=== PATIENT | female | born 1945 | race Caucasian/White ===

== ENCOUNTER 2019-03-11 13:56 | Observation (INO) | payer MEDICARE, OTHER ==
[2019-03-11] MEDS ORDERED: Sodium Chloride 0.9% 1,000 ML IV ONE (14:23)
[2019-03-11] MEDS ORDERED: Ketorolac 30 MG/ML SDV IVPUSH ONE (14:23)
--- NOTE | 2019-03-11 14:41 | EDM.PDOC ---
ED HPI GENERAL MEDICAL PROBLEM - General Chief Complaint: Genitourinary Problem Stated Complaint: UIT Time Seen by Provider: 03/11/19 14:08 Source of Information: Reports: Patient History Limitations: Reports: No Limitations - History of Present Illness INITIAL COMMENTS - FREE TEXT/NARRATIVE: HISTORY AND PHYSICAL: History of present illness: Patient is a 73-year-old female who presents to the emergency room with complaints of generalized body aches and chills. Patient reports last week she had called her primary care provider, Dr Pop, who gave her prescription over the phone for Cipro for a suspected UTI. She states she was unable to get into the clinic so they treated her empirically due to her dysuria symptoms. She had left for vacation (while taking the 5 day course of abx) and has recently returned home. She now has generalized body aches and chills. Patient denies any fever, chills, headache, change in vision, syncope or near syncope. Denies any chest pain, back pain, shortness of breath or cough. Denies any abdominal pain, flank pain, nausea, vomiting, diarrhea, constipation or dysuria. Has not noted any blood in urine or stool. Patient has been eating and drinking appropriately. Review of systems: As per history of present illness and below otherwise all systems reviewed and negative. Past medical history: As per history of present illness and as reviewed below otherwise noncontributory. Surgical history: As per history of present illness and as reviewed below otherwise noncontributory. Social history: See social history for further information Family history: As per history of present illness and as reviewed below otherwise noncontributory. Physical exam: General: Well-developed and well-nourished 73-year-old female. Alert and oriented. Nontoxic appearing and in no acute distress. HEENT: Atraumatic, normocephalic, pupils equal and reactive bilaterally, legally blind, negative for conjunctival pallor or scleral icterus, mucous membranes moist, TMs normal bilaterally, throat clear, neck supple, nontender, trachea midline. No drooling or trismus noted. No meningeal signs. No hot potato voice noted. Lungs: Clear to auscultation, breath sounds equal bilaterally, chest nontender. Heart: S1S2, regular rate and rhythm without overt murmur Abdomen: Soft, nondistended, nontender. Negative for masses or hepatosplenomegaly. Negative for costovertebral tenderness. Pelvis: Stable nontender. Genitourinary: Deferred. Rectal: Deferred. Skin: Intact, warm, dry. No lesions or rashes noted. Extremities: Atraumatic, moves all extremities per self without difficulty or deficits, negative for cords or calf pain. Neurovascular unremarkable. Neuro: Awake, alert, oriented. Cranial nerves II through XII unremarkable. Cerebellum unremarkable. Motor and sensory unremarkable throughout. Exam nonfocal. Notes: Patient reports she does not feel any improvement after the IV fluids and Toradol. Rocephin is currently running for treatment of the UTI. We'll call Dr. Ugalde in consult for possible admission for observation. Dr Ugalde is agreeable to observation admission. Patients vital signs remain stable. Diagnostics: CBC, CMP, EKG, UA, Lactic Therapeutics: IV fluids, Toradol, Rocephin Impression: UTI Plan: Observation admission to med/surg Definitive disposition and diagnosis as appropriate pending reevaluation and review of above. Generalized Pain Score (Numeric/FACES): 2 - Related Data Allergies Allergy/AdvReac Type Severity Reaction Status Date / Time No Known Allergies Allergy Verified 03/11/19 14:14 Home Meds: Home Meds . [No Known Home Meds] 03/11/19 [History] Past Medical History - Infectious Disease History Infectious Disease History: Reports: Chicken Pox, Measles - Past Surgical History GI Surgical History: Reports: Cholecystectomy Female Surgical History: Reports: Hysterectomy Social & Family History - Family History Family Medical History: Noncontributory - Tobacco Use Smoking Status *Q: Never Smoker - Recreational Drug Use Recreational Drug Use: No ED ROS GENERAL - Review of Systems Review Of Systems: ROS reveals no pertinent complaints other than HPI. ED EXAM, GI/ABD - Physical Exam Exam: See Below (See dictation) Course - Vital Signs Last Recorded V/S: Last Vital Signs Temp 98.7 F 03/11/19 14:11 Pulse 97 03/11/19 14:11 Resp 18 03/11/19 14:11 BP 177/94 H 03/11/19 14:11 Pulse Ox 96 03/11/19 14:11 - Orders/Labs/Meds Orders: Active Orders 24 hr Category Date Time Status Admission Status [Patient Status] [ADT] Stat ADT 03/11/19 16:26 Active EKG Documentation Completion [RC] STAT Care 03/11/19 14:23 Active CULTURE URINE [RM] Stat Lab 03/11/19 15:30 Received Labs: Laboratory Tests 03/11/19 03/11/19 03/11/19 Range/Units 14:57 15:30 15:42 WBC 11.30 H (4.0-11.0) K/uL RBC 4.57 (4.30-5.90) M/uL Hgb 14.0 (12.0-16.0) g/dL Hct 42.3 (36.0-46.0) % MCV 92.6 (80.0-98.0) fL MCH 30.6 (27.0-32.0) pg MCHC 33.1 (31.0-37.0) g/dL RDW Std Deviation 42.8 (28.0-62.0) fl RDW Coeff of Dianelys 13 (11.0-15.0) % Plt Count 214 (150-400) K/uL MPV 9.90 (7.40-12.00) fL Neut % (Auto) 73.5 (48.0-80.0) % Lymph % (Auto) 16.6 (16.0-40.0) % [place] % (Auto) 9.4 (0.0-15.0) % Eos % (Auto) 0.4 (0.0-7.0) % Baso % (Auto) 0.1 (0.0-1.5) % Neut # (Auto) 8.3 H (1.4-5.7) K/uL Lymph # (Auto) 1.9 (0.6-2.4) K/uL [place] # (Auto) 1.1 H (0.0-0.8) K/uL Eos # (Auto) 0.1 (0.0-0.7) K/uL Baso # (Auto) 0.0 (0.0-0.1) K/uL Nucleated RBC % 0.0 /100WBC Nucleated RBCs # 0 K/uL Lactate (0.20-2.00) mmol/L Sodium 141 (136-145) mmol/L Potassium 3.9 (3.5-5.1) mmol/L Chloride 104 (98-107) mmol/L Carbon Dioxide 26.7 (21.0-32.0) mmol/L BUN 12 (7.0-18.0) mg/dL Creatinine 0.9 (0.6-1.0) mg/dL Est Cr Clr Drug Dosing 52.12 mL/min Estimated GFR (MDRD) > 60.0 ml/min Glucose 99 (74-106) mg/dL Calcium 8.6 (8.5-10.1) mg/dL Total Bilirubin 0.5 (0.2-1.0) mg/dL AST 24 (15-37) IU/L ALT 38 (14-63) IU/L Alkaline Phosphatase 130 H (46-116) U/L Total Protein 7.1 (6.4-8.2) g/dL Albumin 3.3 L (3.4-5.0) g/dL Globulin 3.8 (2.6-4.0) g/dL Albumin/Globulin Ratio 0.9 (0.9-1.6) Urine Color YELLOW Urine Appearance CLEAR Urine pH 6.0 (5.0-8.0) Ur Specific [place] 1.010 (1.001-1.035) Urine Protein 30 H (NEGATIVE) mg/dL Urine Glucose (UA) NEGATIVE (NEGATIVE) mg/dL Urine Ketones 15 H (NEGATIVE) mg/dL Urine Occult Blood SMALL H (NEGATIVE) Urine Nitrite POSITIVE H (NEGATIVE) Urine Bilirubin NEGATIVE (NEGATIVE) Urine Urobilinogen 0.2 (<2.0) EU/dL Ur Leukocyte Esterase LARGE H (NEGATIVE) Urine RBC 2-4 (0-2/HPF) Urine WBC TO NUMEROUS TO COUNT H (0-5/HPF) Ur Epithelial Cells FEW (NONE-FEW) Urine Bacteria 1+ H (NEGATIVE) 03/11/19 Range/Units 15:42 WBC (4.0-11.0) K/uL RBC (4.30-5.90) M/uL Hgb (12.0-16.0) g/dL Hct (36.0-46.0) % MCV (80.0-98.0) fL MCH (27.0-32.0) pg MCHC (31.0-37.0) g/dL RDW Std Deviation (28.0-62.0) fl RDW Coeff of Dianelys (11.0-15.0) % Plt Count (150-400) K/uL MPV (7.40-12.00) fL Neut % (Auto) (48.0-80.0) % Lymph % (Auto) (16.0-40.0) % [place] % (Auto) (0.0-15.0) % Eos % (Auto) (0.0-7.0) % Baso % (Auto) (0.0-1.5) % Neut # (Auto) (1.4-5.7) K/uL Lymph # (Auto) (0.6-2.4) K/uL [place] # (Auto) (0.0-0.8) K/uL Eos # (Auto) (0.0-0.7) K/uL Baso # (Auto) (0.0-0.1) K/uL Nucleated RBC % /100WBC Nucleated RBCs # K/uL Lactate 1.2 (0.20-2.00) mmol/L Sodium (136-145) mmol/L Potassium (3.5-5.1) mmol/L Chloride (98-107) mmol/L Carbon Dioxide (21.0-32.0) mmol/L BUN (7.0-18.0) mg/dL Creatinine (0.6-1.0) mg/dL Est Cr Clr Drug Dosing mL/min Estimated GFR (MDRD) ml/min Glucose (74-106) mg/dL Calcium (8.5-10.1) mg/dL Total Bilirubin (0.2-1.0) mg/dL AST (15-37) IU/L ALT (14-63) IU/L Alkaline Phosphatase (46-116) U/L Total Protein (6.4-8.2) g/dL Albumin (3.4-5.0) g/dL Globulin (2.6-4.0) g/dL Albumin/Globulin Ratio (0.9-1.6) Urine Color Urine Appearance Urine pH (5.0-8.0) Ur Specific [place] (1.001-1.035) Urine Protein (NEGATIVE) mg/dL Urine Glucose (UA) (NEGATIVE) mg/dL Urine Ketones (NEGATIVE) mg/dL Urine Occult Blood (NEGATIVE) Urine Nitrite (NEGATIVE) Urine Bilirubin (NEGATIVE) Urine Urobilinogen (<2.0) EU/dL Ur Leukocyte Esterase (NEGATIVE) Urine RBC (0-2/HPF) Urine WBC (0-5/HPF) Ur Epithelial Cells (NONE-FEW) Urine Bacteria (NEGATIVE) Meds: Medications Discontinued Medications Generic Name Dose Route Start Last Admin Trade Name Nicolasa PRN Reason Stop Dose Admin Sodium Chloride 1,000 mls @ 999 mls/hr 03/11/19 14:23 03/11/19 14:59 Normal Saline IV 03/11/19 15:23 999 mls/hr STAT ONE Administration Ceftriaxone Sodium/Dextrose 1 50 mls @ 100 mls/hr 03/11/19 15:52 03/11/19 16: 17 gm/ Premix IV 03/11/19 16:21 100 mls/hr ONETIME ONE Administration Ketorolac Tromethamine 30 mg 03/11/19 14:23 03/11/19 15:02 Toradol IVPUSH 03/11/19 14:24 30 mg ONETIME ONE Administration Departure - Departure Time of Disposition: 17:00 Disposition: Refer to Observation Clinical Impression: UTI, Urinary tract infectious disease - Discharge Information Referrals: Elliot Pop MD [Primary Care Provider] - Forms: ED Department Discharge - My Orders Last 24 Hours: My Active Orders 03/11/19 14:23 EKG Documentation Completion [RC] STAT 03/11/19 15:30 CULTURE URINE [RM] Stat 03/11/19 16:26 Admission Status [Patient Status] [ADT] Stat - Assessment/Plan Last 24 Hours: My Active Orders 03/11/19 14:23 EKG Documentation Completion [RC] STAT 03/11/19 15:30 CULTURE URINE [RM] Stat 03/11/19 16:26 Admission Status [Patient Status] [ADT] Stat
[2019-03-11] MEDS ORDERED: cefTRIAXone 1 GM in Premix Bag 1 BAG IV ONE (15:52)
[2019-03-11 16:10] LABS: CHLORIDE,CL 104 mmol/L (98-107); SODIUM,NA 141 mmol/L (136-145)
[2019-03-11] MEDS: Sodium Chloride 0.9% 1,000 ML IV SCH (19:08)
[2019-03-11] MEDS: Acetaminophen 325 MG Tab PO PRN (20:41)
[2019-03-11] MEDS ORDERED: Ondansetron 4 MG/2 ML SDV IVPUSH PRN (21:55)
--- NOTE | 2019-03-11 21:59 | PCM.HP ---
H&P History of Present Illness - General Date of Service: 03/11/19 Admit Problem/Dx: Admission Diagnosis/Problem Admission Diagnosis/Problem UTI, Urinary tract infectious disease - History of Present Illness Initial Comments - Free Text/Narative: 73 yo female who presents with five day history of malaise, fevers, chills, and myalgias. Last tuesday she was given ciprofloxacin for UTI by Dr. Pop. She reports that she has not been getting better. She was seen in the ED and noted to have pyuria on UA. Generalized Pain Score (Numeric/FACES): 2 - Related Data Allergies/Adverse Reactions: Allergies Allergy/AdvReac Type Severity Reaction Status Date / Time No Known Allergies Allergy Verified 03/11/19 14:14 Home Medications: Home Meds . [No Known Home Meds] 03/11/19 [History] Past Medical History - Infectious Disease History Infectious Disease History: Reports: Chicken Pox, Measles - Past Surgical History GI Surgical History: Reports: Cholecystectomy Female Surgical History: Reports: Hysterectomy Social & Family History - Family History Family Medical History: Noncontributory - Tobacco Use Smoking Status *Q: Never Smoker - Caffeine Use Caffeine Use: Reports: Coffee - Recreational Drug Use Recreational Drug Use: No H&P Review of Systems - Review of Systems: Review Of Systems: ROS reveals no pertinent complaints other than HPI. Exam - Exam Exam: See Below - Vital Signs Vital Signs: Last Vital Signs Temp 38.8 C H 03/11/19 20:00 Pulse 105 H 03/11/19 20:00 Resp 18 03/11/19 20:00 BP 126/65 03/11/19 20:00 Pulse Ox 94 L 03/11/19 20:00 Weight: 66.905 kg - Exam General: Alert, Oriented HEENT: Mucosa Moist & [place]ck: Supple Lungs: Clear to Auscultation, Normal Respiratory Effort Cardiovascular: Regular Rate, Regular Rhythm GI/Abdominal Exam: Normal Bowel Sounds, Soft, Non-Tender Skin: Warm, Dry, Intact Neurological: Cranial Nerves Intact - Patient Data Lab Results Last 24 hrs: Laboratory Results - last 24 hr 03/11/19 03/11/19 03/11/19 Range/Units 14:57 15:30 15:42 WBC 11.30 H (4.0-11.0) K/uL RBC 4.57 (4.30-5.90) M/uL Hgb 14.0 (12.0-16.0) g/dL Hct 42.3 (36.0-46.0) % MCV 92.6 (80.0-98.0) fL MCH 30.6 (27.0-32.0) pg MCHC 33.1 (31.0-37.0) g/dL RDW Std Deviation 42.8 (28.0-62.0) fl RDW Coeff of Dianelys 13 (11.0-15.0) % Plt Count 214 (150-400) K/uL MPV 9.90 (7.40-12.00) fL Neut % (Auto) 73.5 (48.0-80.0) % Lymph % (Auto) 16.6 (16.0-40.0) % [place] % (Auto) 9.4 (0.0-15.0) % Eos % (Auto) 0.4 (0.0-7.0) % Baso % (Auto) 0.1 (0.0-1.5) % Neut # (Auto) 8.3 H (1.4-5.7) K/uL Lymph # (Auto) 1.9 (0.6-2.4) K/uL [place] # (Auto) 1.1 H (0.0-0.8) K/uL Eos # (Auto) 0.1 (0.0-0.7) K/uL Baso # (Auto) 0.0 (0.0-0.1) K/uL Nucleated RBC % 0.0 /100WBC Nucleated RBCs # 0 K/uL Lactate (0.20-2.00) mmol/L Sodium 141 (136-145) mmol/L Potassium 3.9 (3.5-5.1) mmol/L Chloride 104 (98-107) mmol/L Carbon Dioxide 26.7 (21.0-32.0) mmol/L BUN 12 (7.0-18.0) mg/dL Creatinine 0.9 (0.6-1.0) mg/dL Est Cr Clr Drug Dosing 52.12 mL/min Estimated GFR (MDRD) > 60.0 ml/min Glucose 99 (74-106) mg/dL Calcium 8.6 (8.5-10.1) mg/dL Total Bilirubin 0.5 (0.2-1.0) mg/dL AST 24 (15-37) IU/L ALT 38 (14-63) IU/L Alkaline Phosphatase 130 H (46-116) U/L Total Protein 7.1 (6.4-8.2) g/dL Albumin 3.3 L (3.4-5.0) g/dL Globulin 3.8 (2.6-4.0) g/dL Albumin/Globulin Ratio 0.9 (0.9-1.6) Urine Color YELLOW Urine Appearance CLEAR Urine pH 6.0 (5.0-8.0) Ur Specific [place] 1.010 (1.001-1.035) Urine Protein 30 H (NEGATIVE) mg/dL Urine Glucose (UA) NEGATIVE (NEGATIVE) mg/dL Urine Ketones 15 H (NEGATIVE) mg/dL Urine Occult Blood SMALL H (NEGATIVE) Urine Nitrite POSITIVE H (NEGATIVE) Urine Bilirubin NEGATIVE (NEGATIVE) Urine Urobilinogen 0.2 (<2.0) EU/dL Ur Leukocyte Esterase LARGE H (NEGATIVE) Urine RBC 2-4 (0-2/HPF) Urine WBC TO NUMEROUS TO COUNT H (0-5/HPF) Ur Epithelial Cells FEW (NONE-FEW) Urine Bacteria 1+ H (NEGATIVE) 03/11/19 Range/Units 15:42 WBC (4.0-11.0) K/uL RBC (4.30-5.90) M/uL Hgb (12.0-16.0) g/dL Hct (36.0-46.0) % MCV (80.0-98.0) fL MCH (27.0-32.0) pg MCHC (31.0-37.0) g/dL RDW Std Deviation (28.0-62.0) fl RDW Coeff of Dianelys (11.0-15.0) % Plt Count (150-400) K/uL MPV (7.40-12.00) fL Neut % (Auto) (48.0-80.0) % Lymph % (Auto) (16.0-40.0) % [place] % (Auto) (0.0-15.0) % Eos % (Auto) (0.0-7.0) % Baso % (Auto) (0.0-1.5) % Neut # (Auto) (1.4-5.7) K/uL Lymph # (Auto) (0.6-2.4) K/uL [place] # (Auto) (0.0-0.8) K/uL Eos # (Auto) (0.0-0.7) K/uL Baso # (Auto) (0.0-0.1) K/uL Nucleated RBC % /100WBC Nucleated RBCs # K/uL Lactate 1.2 (0.20-2.00) mmol/L Sodium (136-145) mmol/L Potassium (3.5-5.1) mmol/L Chloride (98-107) mmol/L Carbon Dioxide (21.0-32.0) mmol/L BUN (7.0-18.0) mg/dL Creatinine (0.6-1.0) mg/dL Est Cr Clr Drug Dosing mL/min Estimated GFR (MDRD) ml/min Glucose (74-106) mg/dL Calcium (8.5-10.1) mg/dL Total Bilirubin (0.2-1.0) mg/dL AST (15-37) IU/L ALT (14-63) IU/L Alkaline Phosphatase (46-116) U/L Total Protein (6.4-8.2) g/dL Albumin (3.4-5.0) g/dL Globulin (2.6-4.0) g/dL Albumin/Globulin Ratio (0.9-1.6) Urine Color Urine Appearance Urine pH (5.0-8.0) Ur Specific [place] (1.001-1.035) Urine Protein (NEGATIVE) mg/dL Urine Glucose (UA) (NEGATIVE) mg/dL Urine Ketones (NEGATIVE) mg/dL Urine Occult Blood (NEGATIVE) Urine Nitrite (NEGATIVE) Urine Bilirubin (NEGATIVE) Urine Urobilinogen (<2.0) EU/dL Ur Leukocyte Esterase (NEGATIVE) Urine RBC (0-2/HPF) Urine WBC (0-5/HPF) Ur Epithelial Cells (NONE-FEW) Urine Bacteria (NEGATIVE) Result Diagrams: 03/12/19 05:43 03/12/19 05:43 Ritesh Results Last 24 hrs: Microbiology 03/11/19 15:24 Influenza Type A Antigen Screen - Final Nasopharyngeal Swab NEGATIVE INFLUENZA A VIRUS AG Influenza Type B Antigen Screen - Final NEGATIVE INFLUENZA B VIRUS AG Problem List Initiated/Reviewed/Updated: Yes Orders Last 24hrs: Active Orders 24 hr Category Date Time Status Admission Status [Patient Status] [ADT] Stat ADT 03/11/19 16:26 Active Antiembolic Devices [RC] PER UNIT ROUTINE Care 03/11/19 21:56 Ordered EKG Documentation Completion [RC] STAT Care 03/11/19 14:23 Active Notify Provider [RC] Q12H Care 03/11/19 17:47 Active Oxygen Therapy [RC] PRN Care 03/11/19 21:55 Ordered Up ad Nuris [RC] ASDIRECTED Care 03/11/19 21:55 Ordered VTE/DVT Education [RC] PER UNIT ROUTINE Care 03/11/19 21:55 Ordered Vital Signs [RC] Q4H Care 03/11/19 21:55 Ordered Regular Diet [DIET] Diet 03/11/19 Dinner Active Abdomen Pelvis wo Cont [CT] Routine Exams 03/11/19 21:38 Ordered BASIC METABOLIC PANEL,BMP [CHEM] Routine Lab 03/12/19 05:11 Ordered CBC WITH AUTO DIFF [HEME] Routine Lab 03/12/19 05:11 Ordered CULTURE URINE [RM] Stat Lab 03/11/19 15:30 Received Acetaminophen [Tylenol] Med 03/11/19 20:19 Active 650 mg PO Q6H PRN Ondansetron [Zofran] Med 03/11/19 21:55 Ordered 4 mg IVPUSH Q4H PRN Sodium Chloride 0.9% [Normal Saline] 1,000 ml Med 03/11/19 19:00 Active IV ASDIRECTED cefTRIAXone [Rocephin in Dextrose,Iso-Osm 1 GM/50 ML] 1 Med 03/12/19 16:00 Active gm Premix Bag 1 bag IV Q24H Sequential Compression Device [OM.PC] Per Unit Routine Oth 03/11/19 21:56 Ordered Resuscitation Status Routine Resus Stat 03/11/19 21:55 Ordered Medication Orders Acetaminophen (Tylenol) 650 mg PO Q6H PRN PRN Reason: Pain Last Admin: 03/11/19 20:41 Dose: 650 mg Sodium Chloride (Normal Saline) 1,000 mls @ 125 mls/hr IV ASDIRECTED BILLY Last Admin: 03/11/19 19:08 Dose: 125 mls/hr Ceftriaxone Sodium/Dextrose 1 (gm/ Premix) 50 mls @ 100 mls/hr IV Q24H [facility] Assessment/Plan Comment:: 73 yo female admitted for UTI possible pyelonephritis. We will check CT of the abdomen and pelvis. Will treat with IV Rocephin. Urine culture is pending.
--- NOTE | 2019-03-11 22:59 | CT ---
INDICATION: Abdominal pain. TECHNIQUE: Noncontrast axial images. Sagittal and coronal reconstructions. COMPARISON: None. FINDINGS: Lower chest: Heart size is within normal limits. No pericardial effusion. Mild bibasilar atelectasis. No pleural fluid. Abdomen and pelvis: The unenhanced liver appears unremarkable. Cholecystectomy. Spleen is normal in size. Unenhanced pancreas is unremarkable. No adrenal gland abnormality. No urinary tract stones are identified. No hydronephrosis. There is mild right-sided perinephric fat stranding. Left renal cyst. Atherosclerotic changes. Normal caliber abdominal aorta. No significantly dilated bowel. Normal appendix. Colonic diverticulosis without evidence of acute diverticulitis. No free air. Trace free fluid is seen in the pelvis. Urinary bladder appears unremarkable. Hysterectomy. Bones: No acute abnormality. Degenerative changes are present in the spine and hips. IMPRESSION: 1. No urinary tract stones or hydroureteronephrosis. 2. There is perinephric fat stranding on the right. This could be secondary to pyelonephritis, although this is suboptimally assessed on this unenhanced study. Recommend correlation with urinalysis. 3. Nonacute findings as described above. Dictated by Freddy Gan MD @ 03/11/2019 10:57:38 PM Please note that all CT scans at this facility use dose modulation, iterative reconstruction, and/or weight-based dosing when appropriate to reduce radiation dose to as low as reasonably achievable. Dictated by: Freddy Gan MD @ 03/11/2019 22:57:45 (Electronically Signed)
[2019-03-12] MEDS: Sodium Chloride 0.9% 1,000 ML IV SCH ×3 (03:15→19:19)
[2019-03-12] MEDS: Acetaminophen 325 MG Tab PO PRN ×4 (04:06→22:41)
[2019-03-12 06:26] LABS: CHLORIDE,CL 107 mmol/L (98-107); SODIUM,NA 140 mmol/L (136-145)
--- NOTE | 2019-03-12 11:47 | PCM.PN ---
- General Info Date of Service: 03/12/19 - Review of Systems Systems Review Comment:: feeling better, myalgias and strength improved - Patient Data Vitals - Most Recent: Last Vital Signs Temp 36.4 C 03/12/19 08:00 Pulse 76 03/12/19 08:00 Resp 16 03/12/19 08:00 BP 110/69 03/12/19 08:00 Pulse Ox 94 L 03/12/19 08:00 Weight - Most Recent: 66.905 kg I&O - Last 24 Hours: Intake & Output 03/11/19 03/12/19 03/12/19 22:59 06:59 14:59 Intake Total 2002 240 Output Total 650 Balance 1353 240 Lab Results Last 24 Hours: Laboratory Results - last 24 hr 03/11/19 03/11/19 03/11/19 Range/Units 14:57 15:30 15:42 WBC 11.30 H (4.0-11.0) K/uL RBC 4.57 (4.30-5.90) M/uL Hgb 14.0 (12.0-16.0) g/dL Hct 42.3 (36.0-46.0) % MCV 92.6 (80.0-98.0) fL MCH 30.6 (27.0-32.0) pg MCHC 33.1 (31.0-37.0) g/dL RDW Std Deviation 42.8 (28.0-62.0) fl RDW Coeff of Dianelys 13 (11.0-15.0) % Plt Count 214 (150-400) K/uL MPV 9.90 (7.40-12.00) fL Neut % (Auto) 73.5 (48.0-80.0) % Lymph % (Auto) 16.6 (16.0-40.0) % [place] % (Auto) 9.4 (0.0-15.0) % Eos % (Auto) 0.4 (0.0-7.0) % Baso % (Auto) 0.1 (0.0-1.5) % Neut # (Auto) 8.3 H (1.4-5.7) K/uL Lymph # (Auto) 1.9 (0.6-2.4) K/uL [place] # (Auto) 1.1 H (0.0-0.8) K/uL Eos # (Auto) 0.1 (0.0-0.7) K/uL Baso # (Auto) 0.0 (0.0-0.1) K/uL Nucleated RBC % 0.0 /100WBC Nucleated RBCs # 0 K/uL Lactate (0.20-2.00) mmol/L Sodium 141 (136-145) mmol/L Potassium 3.9 (3.5-5.1) mmol/L Chloride 104 (98-107) mmol/L Carbon Dioxide 26.7 (21.0-32.0) mmol/L BUN 12 (7.0-18.0) mg/dL Creatinine 0.9 (0.6-1.0) mg/dL Est Cr Clr Drug Dosing 52.12 mL/min Estimated GFR (MDRD) > 60.0 ml/min Glucose 99 (74-106) mg/dL Calcium 8.6 (8.5-10.1) mg/dL Total Bilirubin 0.5 (0.2-1.0) mg/dL AST 24 (15-37) IU/L ALT 38 (14-63) IU/L Alkaline Phosphatase 130 H (46-116) U/L Total Protein 7.1 (6.4-8.2) g/dL Albumin 3.3 L (3.4-5.0) g/dL Globulin 3.8 (2.6-4.0) g/dL Albumin/Globulin Ratio 0.9 (0.9-1.6) Urine Color YELLOW Urine Appearance CLEAR Urine pH 6.0 (5.0-8.0) Ur Specific [place] 1.010 (1.001-1.035) Urine Protein 30 H (NEGATIVE) mg/dL Urine Glucose (UA) NEGATIVE (NEGATIVE) mg/dL Urine Ketones 15 H (NEGATIVE) mg/dL Urine Occult Blood SMALL H (NEGATIVE) Urine Nitrite POSITIVE H (NEGATIVE) Urine Bilirubin NEGATIVE (NEGATIVE) Urine Urobilinogen 0.2 (<2.0) EU/dL Ur Leukocyte Esterase LARGE H (NEGATIVE) Urine RBC 2-4 (0-2/HPF) Urine WBC TO NUMEROUS TO COUNT H (0-5/HPF) Ur Epithelial Cells FEW (NONE-FEW) Urine Bacteria 1+ H (NEGATIVE) 03/11/19 03/12/19 03/12/19 Range/Units 15:42 05:43 05:43 WBC 9.73 (4.0-11.0) K/uL RBC 3.85 L (4.30-5.90) M/uL Hgb 11.6 L (12.0-16.0) g/dL Hct 35.5 L (36.0-46.0) % MCV 92.2 (80.0-98.0) fL MCH 30.1 (27.0-32.0) pg MCHC 32.7 (31.0-37.0) g/dL RDW Std Deviation 43.1 (28.0-62.0) fl RDW Coeff of Dianelys 13 (11.0-15.0) % Plt Count 199 (150-400) K/uL MPV 9.30 (7.40-12.00) fL Neut % (Auto) 76.5 (48.0-80.0) % Lymph % (Auto) 12.9 L (16.0-40.0) % [place] % (Auto) 9.7 (0.0-15.0) % Eos % (Auto) 0.7 (0.0-7.0) % Baso % (Auto) 0.2 (0.0-1.5) % Neut # (Auto) 7.4 H (1.4-5.7) K/uL Lymph # (Auto) 1.3 (0.6-2.4) K/uL [place] # (Auto) 0.9 H (0.0-0.8) K/uL Eos # (Auto) 0.1 (0.0-0.7) K/uL Baso # (Auto) 0.0 (0.0-0.1) K/uL Nucleated RBC % 0.0 /100WBC Nucleated RBCs # 0 K/uL Lactate 1.2 (0.20-2.00) mmol/L Sodium 140 (136-145) mmol/L Potassium 3.5 (3.5-5.1) mmol/L Chloride 107 (98-107) mmol/L Carbon Dioxide 23.4 (21.0-32.0) mmol/L BUN 9 (7.0-18.0) mg/dL Creatinine 0.8 (0.6-1.0) mg/dL Est Cr Clr Drug Dosing 58.95 mL/min Estimated GFR (MDRD) > 60.0 ml/min Glucose 115 H (74-106) mg/dL Calcium 7.5 L (8.5-10.1) mg/dL Total Bilirubin (0.2-1.0) mg/dL AST (15-37) IU/L ALT (14-63) IU/L Alkaline Phosphatase (46-116) U/L Total Protein (6.4-8.2) g/dL Albumin (3.4-5.0) g/dL Globulin (2.6-4.0) g/dL Albumin/Globulin Ratio (0.9-1.6) Urine Color Urine Appearance Urine pH (5.0-8.0) Ur Specific [place] (1.001-1.035) Urine Protein (NEGATIVE) mg/dL Urine Glucose (UA) (NEGATIVE) mg/dL Urine Ketones (NEGATIVE) mg/dL Urine Occult Blood (NEGATIVE) Urine Nitrite (NEGATIVE) Urine Bilirubin (NEGATIVE) Urine Urobilinogen (<2.0) EU/dL Ur Leukocyte Esterase (NEGATIVE) Urine RBC (0-2/HPF) Urine WBC (0-5/HPF) Ur Epithelial Cells (NONE-FEW) Urine Bacteria (NEGATIVE) Ritesh Results Last 24 Hours: Microbiology 03/11/19 15:24 Influenza Type A Antigen Screen - Final Nasopharyngeal Swab NEGATIVE INFLUENZA A VIRUS AG Influenza Type B Antigen Screen - Final NEGATIVE INFLUENZA B VIRUS AG Med Orders - Current: Current Medications Acetaminophen (Tylenol) 650 mg PO Q6H PRN PRN Reason: Pain Last Admin: 03/12/19 09:30 Dose: 650 mg Sodium Chloride (Normal Saline) 1,000 mls @ 125 mls/hr IV ASDIRECTED BILLY Last Admin: 03/12/19 10:48 Dose: 125 mls/hr Ceftriaxone Sodium/Dextrose 1 (gm/ Premix) 50 mls @ 100 mls/hr IV Q24H [facility] Ondansetron HCl (Zofran) 4 mg IVPUSH Q4H PRN PRN Reason: Nausea Discontinued Medications Sodium Chloride (Normal Saline) 1,000 mls @ 999 mls/hr IV STAT ONE Stop: 03/11/19 15:23 Last Admin: 03/11/19 14:59 Dose: 999 mls/hr Ceftriaxone Sodium/Dextrose 1 (gm/ Premix) 50 mls @ 100 mls/hr IV ONETIME ONE Stop: 03/11/19 16:21 Last Admin: 03/11/19 16:17 Dose: 100 mls/hr Ketorolac Tromethamine (Toradol) 30 mg IVPUSH ONETIME ONE Stop: 03/11/19 14:24 Last Admin: 03/11/19 15:02 Dose: 30 mg - Exam General: Alert, Oriented Neck: Supple Lungs: Clear to Auscultation, Normal Respiratory Effort Cardiovascular: Regular Rate, Regular Rhythm Extremities: Normal Inspection, Non-Tender Skin: Warm, Dry, Intact Neurological: No New Focal Deficit - Problem List Review Problem List Initiated/Reviewed/Updated: Yes - My Orders Last 24 Hours: My Active Orders 03/11/19 17:47 Notify Provider [RC] Q12H 03/11/19 19:00 Sodium Chloride 0.9% [Normal Saline] 1,000 ml IV ASDIRECTED 03/11/19 20:19 Acetaminophen [Tylenol] 650 mg PO Q6H PRN 03/11/19 21:55 Oxygen Therapy [RC] PRN Up ad Nuris [RC] ASDIRECTED VTE/DVT Education [RC] PER UNIT ROUTINE Vital Signs [RC] Q4H Ondansetron [Zofran] 4 mg IVPUSH Q4H PRN Resuscitation Status Routine 03/11/19 21:56 Antiembolic Devices [RC] PER UNIT ROUTINE Sequential Compression Device [OM.PC] Per Unit Routine 03/11/19 Dinner Regular Diet [DIET] 03/12/19 16:00 cefTRIAXone [Rocephin in Dextrose,Iso-Osm 1 GM/50 ML] 1 gm Premix Bag 1 bag IV Q24H - Plan Plan:: 73 yo female admitted for pyelonephritis. We will continue Rocephin. Urine culture is pending. Anticipate discharge home tomorrow.
[2019-03-12] MEDS ORDERED: cefTRIAXone 1 GM in Premix Bag 1 BAG IV SCH (16:00)
[2019-03-13] MEDS: Acetaminophen 325 MG Tab PO PRN (04:47)
[2019-03-13] MEDS: Sodium Chloride 0.9% 1,000 ML IV SCH (04:50)
[2019-03-13 06:24] LABS: CHLORIDE,CL 109 mmol/L (98-107); SODIUM,NA 144 mmol/L (136-145)
--- NOTE | 2019-03-13 12:33 | PCM.DCSUM1 ---
Discharge Summary - Discharge Data Discharge Date: 03/13/19 Discharge Disposition: Home, Self-Care 01 Condition: Stable - Patient Summary/Data Hospital Course: 73 yo female admitted for pyelonephritis who presents with five day history of malaise, fevers, chills, and myalgias. She failed outpatient management of UTI with Ciprofloxacin. CT scan of abdomen and pelvis showed nonspecific right perinephric fat stranding but no obstructing stone or hydronephrosis. She was treated with IV Rocephin for two day with improvement in her symptoms. Today she is requesting discharge. Ecoli grew out in urine culture resistent to Ciprofloxacin but sensitive to Bactrim. Patient was discharged on Bactrim DS BID for ten more days. She is to follow up with Dr. Pop. - Patient Instructions Diet: Regular Diet as Tolerated Activity: As Tolerated Notify Provider of: Fever, Increased Pain, Nausea and/or Vomiting - Discharge Plan Prescriptions/Med Rec: Sulfamethoxazole/Trimethoprim [Bactrim Ds Tablet] 1 each PO BID #20 tablet Home Medications: Home Meds Sulfamethoxazole/Trimethoprim [Bactrim Ds Tablet] 1 each PO BID #20 tablet 03/13 [Rx] Patient Handouts: Urinary Tract Infection, Adult, [id number]-[id number], Sulfamethoxazole; Trimethoprim, SMX-TMP tablets Referrals: [facility] [Outside] Elliot Pop MD [Primary Care Provider] - 03/19/19 1:30 pm - Discharge Summary/Plan Comment DC Time >30 min.: No - Patient Data Vitals - Most Recent: Last Vital Signs Temp 36.5 C 03/13/19 08:00 Pulse 71 03/13/19 08:00 Resp 14 03/13/19 08:00 BP 133/68 03/13/19 08:00 Pulse Ox 93 L 03/13/19 08:00 Weight - Most Recent: 68.6 kg I&O - Last 24 hours: Intake & Output 03/12/19 03/13/19 03/13/19 22:59 06:59 14:59 Intake Total 2430 1850 Output Total 1500 2650 Balance 930 -800 Lab Results - Last 24 hrs: Laboratory Results - last 24 hr 03/13/19 03/13/19 Range/Units 05:48 05:48 WBC 8.21 (4.0-11.0) K/uL RBC 4.09 L (4.30-5.90) M/uL Hgb 12.4 (12.0-16.0) g/dL Hct 37.4 (36.0-46.0) % MCV 91.4 (80.0-98.0) fL MCH 30.3 (27.0-32.0) pg MCHC 33.2 (31.0-37.0) g/dL RDW Std Deviation 42.8 (28.0-62.0) fl RDW Coeff of Dianelys 13 (11.0-15.0) % Plt Count 210 (150-400) K/uL MPV 9.20 (7.40-12.00) fL Neut % (Auto) 68.0 (48.0-80.0) % Lymph % (Auto) 23.5 (16.0-40.0) % [place] % (Auto) 6.9 (0.0-15.0) % Eos % (Auto) 1.5 (0.0-7.0) % Baso % (Auto) 0.1 (0.0-1.5) % Neut # (Auto) 5.6 (1.4-5.7) K/uL Lymph # (Auto) 1.9 (0.6-2.4) K/uL [place] # (Auto) 0.6 (0.0-0.8) K/uL Eos # (Auto) 0.1 (0.0-0.7) K/uL Baso # (Auto) 0.0 (0.0-0.1) K/uL Nucleated RBC % 0.0 /100WBC Nucleated RBCs # 0 K/uL Sodium 144 (136-145) mmol/L Potassium 3.5 (3.5-5.1) mmol/L Chloride 109 H (98-107) mmol/L Carbon Dioxide 22.7 (21.0-32.0) mmol/L BUN 6 L (7.0-18.0) mg/dL Creatinine 0.8 (0.6-1.0) mg/dL Est Cr Clr Drug Dosing 58.95 mL/min Estimated GFR (MDRD) > 60.0 ml/min Glucose 121 H (74-106) mg/dL Calcium 8.1 L (8.5-10.1) mg/dL HIPOLITO Results - Last 24 hrs: Microbiology 03/11/19 15:30 Urine Culture - Final Urine, Clean Catch Escherichia Coli Med Orders - Current: Current Medications Acetaminophen (Tylenol) 650 mg PO Q6H PRN PRN Reason: Pain Last Admin: 03/13/19 04:47 Dose: 650 mg Sodium Chloride (Normal Saline) 1,000 mls @ 125 mls/hr IV ASDIRECTED BILLY Last Admin: 03/13/19 04:50 Dose: 125 mls/hr Ceftriaxone Sodium/Dextrose 1 (gm/ Premix) 50 mls @ 100 mls/hr IV Q24H BILLY Last Admin: 03/12/19 16:12 Dose: 100 mls/hr Ondansetron HCl (Zofran) 4 mg IVPUSH Q4H PRN PRN Reason: Nausea Last Admin: 03/13/19 06:00 Dose: 4 mg Discontinued Medications Sodium Chloride (Normal Saline) 1,000 mls @ 999 mls/hr IV STAT ONE Stop: 03/11/19 15:23 Last Admin: 03/11/19 14:59 Dose: 999 mls/hr Ceftriaxone Sodium/Dextrose 1 (gm/ Premix) 50 mls @ 100 mls/hr IV ONETIME ONE Stop: 03/11/19 16:21 Last Admin: 03/11/19 16:17 Dose: 100 mls/hr Ketorolac Tromethamine (Toradol) 30 mg IVPUSH ONETIME ONE Stop: 03/11/19 14:24 Last Admin: 03/11/19 15:02 Dose: 30 mg
[2019-03-13 12:58] VITALS: BP 152/85
== END 2019-03-13 01:30 | disposition home or self-care (01) ==
LOC: MW.ED 13:56 → MW.MS 17:08
PROVIDERS: ADMIT Internal Medicine; ATTEND Internal Medicine
DX: N12 Tubulo-interstitial nephritis, not specified as acute or chronic (principal); N39.0 Urinary tract infection, site not specified
CPT/HCPCS: 36415; 74176; 80048; 80053; 81001; 83605; 85025; 87086; 87088; 87186; 87804; 93005; 96361; 96365; 96375; 99284; A9270; J0696; J1885; J2405; J7040; 99283; G0378

== ENCOUNTER 2021-09-01 07:48 | Emergency (ER) | payer MEDICARE, OTHER ==
--- NOTE | 2021-09-01 07:50 | EDM.PDOC ---
ED HPI GENERAL MEDICAL PROBLEM - General Stated Complaint: COVID POSITIVE, LOW OXYGEN LEVEL Time Seen by Provider: 09/01/21 07:48 Source of Information: Reports: Patient History Limitations: Reports: No Limitations - History of Present Illness INITIAL COMMENTS - FREE TEXT/NARRATIVE: 76F presents with known COVID-19 infection. Patient states that she started feeling unwell roughly 4 days ago. Yesterday she received a positive Covid test at an outpatient clinic. Her only past medical history is hypertension. She notes a cough but denies shortness of breath or chest pain. She does feel lightheaded and generalized weakness. - Related Data Allergies Allergy/AdvReac Type Severity Reaction Status Date / Time No Known Allergies Allergy Verified 09/01/21 08:06 Home Meds: Home Meds Celecoxib 1 tab PO ASDIRECTED 09/01/21 [History] Rosuvastatin [Crestor] 1 tab PO DAILY 09/01/21 [History] Past Medical History - Infectious Disease History Infectious Disease History: Reports: Chicken Pox, Measles - Past Surgical History GI Surgical History: Reports: Cholecystectomy Female Surgical History: Reports: Hysterectomy Social & Family History - Family History Family Medical History: No Pertinent Family History - Caffeine Use Caffeine Use: Reports: Coffee ED ROS GENERAL - Review of Systems Review Of Systems: Comprehensive ROS is negative, except as noted in HPI. ED EXAM, GENERAL - Physical Exam Exam: See Below Exam Limited By: No Limitations General Appearance: Alert, WD/WN, No Apparent Distress Ears: Hearing Grossly Normal Throat/Mouth: Normal Voice, No Airway Compromise Head: Atraumatic, Normocephalic Respiratory/Chest: No Respiratory Distress, Lungs Clear, Normal Breath Sounds, No Accessory Muscle Use Cardiovascular: Normal Peripheral Pulses, Regular Rate, Rhythm Extremities: Normal Inspection Neurological: Alert, Normal Cognition, Normal Gait Psychiatric: Normal Affect, Normal Mood Skin Exam: Warm, Dry, Intact, Normal Color Course - Vital Signs Last Recorded V/S: Last Vital Signs Temp 99.9 F 09/01/21 08:29 Pulse 94 09/01/21 08:33 Resp 18 09/01/21 08:03 BP 122/59 L 09/01/21 08:33 Pulse Ox 92 L 09/01/21 08:33 - Orders/Labs/Meds Labs: Laboratory Tests 09/01/21 09/01/21 Range/Units 08:27 08:27 WBC 2.86 L (4.0-11.0) K/uL RBC 4.26 L (4.30-5.90) M/uL Hgb 13.3 (12.0-16.0) g/dL Hct 39.2 (36.0-46.0) % MCV 92.0 (80.0-98.0) fL MCH 31.2 (27.0-32.0) pg MCHC 33.9 (31.0-37.0) g/dL RDW Std Deviation 44.5 (28.0-62.0) fl RDW Coeff of Dianelys 13 (11.0-15.0) % Plt Count 112 L (150-400) K/uL MPV 10.20 (7.40-12.00) fL Neut % (Auto) 75.2 (48.0-80.0) % Lymph % (Auto) 16.8 (16.0-40.0) % [place] % (Auto) 7.7 (0.0-15.0) % Eos % (Auto) 0.0 (0.0-7.0) % Baso % (Auto) 0.3 (0.0-1.5) % Neut # (Auto) 2.2 (1.4-5.7) K/uL Lymph # (Auto) 0.5 L (0.6-2.4) K/uL [place] # (Auto) 0.2 (0.0-0.8) K/uL Eos # (Auto) 0.0 (0.0-0.7) K/uL Baso # (Auto) 0.0 (0.0-0.1) K/uL Nucleated RBC % 0.0 /100WBC Nucleated RBCs # 0 K/uL Sodium 137 (136-145) mmol/L Potassium 4.2 (3.5-5.1) mmol/L Chloride 100 (98-107) mmol/L Carbon Dioxide 25.3 (21.0-32.0) mmol/L BUN 16 (7.0-18.0) mg/dL Creatinine 0.9 (0.6-1.0) mg/dL Est Cr Clr Drug Dosing 49.78 mL/min Estimated GFR (MDRD) > 60.0 ml/min Glucose 125 H (74-106) mg/dL Calcium 7.6 L (8.5-10.1) mg/dL Total Bilirubin 0.4 (0.2-1.0) mg/dL AST 27 (15-37) IU/L ALT 44 (14-63) IU/L Alkaline Phosphatase 69 (46-116) U/L Total Protein 6.5 (6.4-8.2) g/dL Albumin 3.5 (3.4-5.0) g/dL Globulin 3.0 (2.6-4.0) g/dL Albumin/Globulin Ratio 1.2 (0.9-1.6) Meds: Medications Discontinued Medications Generic Name Dose Route Start Last Admin Trade Name Tadq PRN Reason Stop Dose Admin Acetaminophen 1,000 mg 09/01/21 08:08 09/01/21 08:29 Acetaminophen 500 Mg Tab PO 09/01/21 08:09 1,000 mg ONETIME ONE Administration Ibuprofen 400 mg 09/01/21 08:08 09/01/21 08:29 Ibuprofen 400 Mg Tab PO 09/01/21 08:09 400 mg ONETIME ONE Administration - Re-Assessments/Exams Free Text/Narrative Re-Assessment/Exam: 09/01/21 08:10 We will get basic labs and chest x-ray. Anticipate discharge home with Regeneron prescription. Risks and benefits of experimental Regeneron were discussed with patient at length. 09/01/21 09:20 Labs and x-ray unremarkable. Will discharge with Regeneron prescription. I did explain this with patient at length. Return precautions were discussed at length. Departure - Departure Time of Disposition: 09:20 Disposition: Home, Self-Care 01 Condition: Good Clinical Impression: COVID-19 - Discharge Information Instructions: COVID-19: What to Do If You Are Sick- [facility] (01/28/2021) Referrals: Elliot Pop MD [Primary Care Provider] - Additional Instructions: Please be expecting a call from the infusion center to schedule your appointment for the Regeneron monoclonal antibody therapy. This can help prevent progression to severe disease. If you are having worsening shortness of breath or chest pain or feeling like you are going to pass out with short bouts of ambulation please come back to the emergency department for reassessment. Your oxygen level has been borderline in the low 90s. You are at high risk of progression to severe disease, however, your labs and chest x-ray today look great. I am hopeful that the monoclonal antibody therapy will prevent this progression. The following information is given to patients seen in the emergency department who are being discharged to home. This information is to outline your options for follow-up care. We provide all patients seen in our emergency department with a follow-up referral. The need for follow-up, as well as the timing and circumstances, are variable depending upon the specifics of your emergency department visit. If you don't have a primary care physician on staff, we will provide you with a referral. We always advise you to contact your personal physician following an emergency department visit to inform them of the circumstance of the visit and for follow-up with them and/or the need for any referrals to a consulting specialist. The emergency department will also refer you to a specialist when appropriate. This referral assures that you have the opportunity for follow-up care with a specialist. All of these measure are taken in an effort to provide you with optimal care, which includes your follow-up. Under all circumstances we always encourage you to contact your private physician who remains a resource for coordinating your care. When calling for follow-up care, please make the office aware that this follow-up is from your recent emergency room visit. If for any reason you are refused follow-up, please contact the [facility] Emergency Department at and asked to speak to the emergency department charge nurse. Please follow up with your primary care physician. If you do not have a primary care physician, see below: [facility] [address] [place] [id number] [facility] [address] [place] [address] [facility] [address] [place] [id number] Sepsis Event Note (ED) - Focused Exam Vital Signs: Vital Signs Temp Temp Pulse Resp BP Pulse Ox 09/01/21 08:33 94 122/59 L 92 L 09/01/21 08:29 99.9 F 09/01/21 08:03 99.9 F 98 18 130/68 94 L
[2021-09-01] MEDS ORDERED: Ibuprofen 400 MG Tab PO ONE (08:08)
[2021-09-01] MEDS ORDERED: Acetaminophen 500 MG Tab PO ONE (08:08)
--- NOTE | 2021-09-01 08:44 | CR ---
INDICATION: COVID-19. Shortness of breath. TECHNIQUE: Chest 1 view. COMPARISON: None FINDINGS: Cardiovascular and mediastinum: Heart size and vasculature are normal in caliber and appearance. Mediastinum is within normal limits. Lungs and pleural space: Lungs are clear. No sign of infiltrate or mass. No sign of pleural effusion. No pneumothorax. Bones and soft tissues: No significant findings. IMPRESSION: 1. Diffuse pulmonary hyperinflation. 2. There is no acute airspace disease identified. Dictated by Reagan Daniels MD @ 09/01/2021 8:43:03 AM (Electronically Signed)
[2021-09-01 09:10] LABS: BLOOD UREA NITROGEN,BUN 16 mg/dL (7.0-18.0); CARBON DIOXIDE,CO2 25.3 mmol/L (21.0-32.0); CHLORIDE,CL 100 mmol/L (98-107); GLUCOSE RANDOM 125 mg/dL (74-106); POTASSIUM,K 4.2 mmol/L (3.5-5.1); SODIUM,NA 137 mmol/L (136-145)
[2021-09-01 09:57] VITALS: BP 109/61; PULSE 75
== END 2021-09-01 09:57 | disposition home or self-care (01) ==
LOC: MW.ED 07:48
DX: U07.1 COVID-19 (principal)
CPT/HCPCS: 36415; 71045; 80053; 85025; 99283; A9270; U0002

== ENCOUNTER 2021-09-03 12:38 | Observation (INO) | payer MEDICARE, OTHER ==
[2021-09-03] MEDS ORDERED: Ketorolac 30 MG/ML SDV IVPUSH ONE (13:26)
[2021-09-03] MEDS ORDERED: Acetaminophen 500 MG Tab PO ONE (13:26)
[2021-09-03] MEDS ORDERED: Sodium Chloride 0.9% 1,000 ML IV ONE (13:26)
--- NOTE | 2021-09-03 13:49 | CR ---
INDICATION: COVID TECHNIQUE: Chest 1 view. COMPARISON: 09/01/21 FINDINGS: Cardiovascular and mediastinum: Heart size and vasculature are normal in caliber and appearance. Mediastinum is within normal limits. Lungs and pleural space: Lungs are clear. No sign of infiltrate or mass. No sign of pleural effusion. No pneumothorax. Bones and soft tissues: No significant findings. IMPRESSION: Unremarkable chest. Dictated by: Johnathon Mays MD @ 09/03/2021 13:47:11 (Electronically Signed)
--- NOTE | 2021-09-03 14:20 | PCM.EKG ---
#1 Interpretation EKG Interpretation Comments: EKG dated 09/03/2021 at 2:13 PM shows sinus rhythm heart rate 77 TN 140 axis 45 QRS late transition R wave T waves inverted in V1 2 and 3 with prior EKG 03/11/2019 showing T wave inversion only in V1. Impression possible ischemia versus T wave inversion secondary to lead placement
[2021-09-03 14:34] LABS: BLOOD UREA NITROGEN,BUN 21 mg/dL (7.0-18.0); CARBON DIOXIDE,CO2 24.9 mmol/L (21.0-32.0); CHLORIDE,CL 99 mmol/L (98-107); GLUCOSE RANDOM 112 mg/dL (74-106); POTASSIUM,K 4.1 mmol/L (3.5-5.1); SODIUM,NA 135 mmol/L (136-145)
[2021-09-03] MEDS ORDERED: Calcium Chloride 10% 1 GM/10 ML Syringe IVPUSH ONE (15:17)
--- NOTE | 2021-09-03 15:24 | EDM.PDOC ---
ED HPI GENERAL MEDICAL PROBLEM - General Chief Complaint: Respiratory Problem Stated Complaint: SHORTNESS OF BREATH Time Seen by Provider: 09/03/21 12:45 Source of Information: Reports: Patient History Limitations: Reports: No Limitations - History of Present Illness INITIAL COMMENTS - FREE TEXT/NARRATIVE: HISTORY AND PHYSICAL: History of present illness: Patient is a 76-year-old female who presents emergency room today via EMS with concern of hypoxia in the setting of COVID-19. Patient states that she was diagnosed 4 days ago and did receive a monoclonal antibody infusion yesterday. Patient states that she has continued to feel tired, weak, has a cough, generalized body aches, and short of breath. Patient denies any other symptoms or concerns. Patient denies neck stiff ness, change in vision, syncope, or near syncope. Denies nausea, vomiting, abdominal pain, diarrhea, constipation, or dysuria. Has not noted any blood in urine or stool. Patient has been eating and drinking appropriately. Review of systems: As per history of present illness and below otherwise all systems reviewed and negative. Past medical history: As per history of present illness and as reviewed below otherwise noncontributory. Surgical history: As per history of present illness and as reviewed below otherwise noncontributory. Social history: See social history for further information Family history: As per history of present illness and as reviewed below otherwise noncontributory. Physical exam: General: Patient is alert, oriented, and in no acute distress. Patient laying comfortably on exam table; tired appearing. Patient is on 3 L nasal cannula via EMS and satting approximately 94 to 95%. On room air, does drop to about 87%. HEENT: Atraumatic, normocephalic, pupils equal and reactive bilaterally, negative for conjunctival pallor or scleral icterus, mucous membranes moist, throat clear, neck supple, nontender, trachea midline. No drooling or trismus noted. No meningeal signs. No hot potato voice noted. Lungs: Clear to auscultation, breath sounds equal bilaterally, chest nontender. Heart: S1S2, regular rate and rhythm without overt murmur Abdomen: Soft, nondistended, nontender. Negative for masses or hepatosplenomegaly. Negative for costovertebral tenderness. Pelvis: Stable nontender. Genitourinary: Deferred. Rectal: Deferred. Skin: Intact, warm, dry. No lesions or rashes noted. Extremities: Atraumatic, negative for cords or calf pain. Neurovascular unremarkable. Neuro: Awake, alert, oriented. Cranial nerves II through XII unremarkable. Cerebellum unremarkable. Motor and sensory unremarkable throughout. Exam nonfocal. Notes: Patient is a 76-year-old female, with known COVID-19 diagnosis x4 days, received monoclonal antibody infusion yesterday, who presents emergency room today with concern of worsening shortness of breath and hypoxia. Upon arrival to the ED, patient presents via EMS with 3 L nasal cannula satting approximately 94 to 95% and tired on exam, otherwise comfortable and breathing without acute distress. Patient was approximately 86 to 87% on room air without nasal cannula. Will obtain cardiac evaluation, angiography of chest for possible PE, and reassess patient. See Dr. Cruz's dictation for specific EKG interpretation. However, normal sinus rhythm without STEMI. Chest x-ray is unremarkable. CBC does show mild thrombocytopenia with platelets at 128, otherwise mild derangements of CBC unremarkable. CMP does show mild hyponatremia with a sodium of 135, BUN mildly elevated at 21. Patient corrected calcium is decreased at 8.3 corrected for albumin. Troponin negative. Ang CT shows moderate Covid virus pneumonia and reactive adenopathy without evidence of pulmonary embolism. Upon reevaluation of patient, to remains vitally stable and comfortable, tired appearing and on 2 L nasal cannula satting rate about 92%. I did call and speak to the hospitalist on-call, Dr. Ugalde, and thoroughly discussed patient's case. Will admit to observation to Dr. Ugalde. Voices understanding and is agreeable to plan of care. Denies any further questions or concerns at this time. Diagnostics: EKG, CBC, CMP, troponin, chest x-ray, angiography chest Therapeutics: NS, Toradol, Tylenol, Decadron, Remdesivir Impression: COVID-19 with hypoxia Plan: Admit to observation to Dr. Ugalde Definitive disposition and diagnosis as appropriate pending reevaluation and review of above. - Related Data Allergies Allergy/AdvReac Type Severity Reaction Status Date / Time No Known Allergies Allergy Verified 09/03/21 12:43 Home Meds: Home Meds Celecoxib 1 tab PO ASDIRECTED 09/01/21 [History] Rosuvastatin [Crestor] 1 tab PO DAILY 09/01/21 [History] Telmisartan 09/03/21 [History] Past Medical History HEENT History: Reports: Impaired Vision Cardiovascular History: Reports: High Cholesterol, Hypertension Respiratory History: Reports: None Gastrointestinal History: Reports: None Genitourinary History: Reports: None CONTACT CENTER SPECIALIST History: Reports: None Musculoskeletal History: Reports: Other (See Below) Neurological History: Reports: None Psychiatric History: Reports: None Endocrine/Metabolic History: Reports: None Hematologic History: Reports: None Immunologic History: Reports: None Oncologic (Cancer) History: Reports: None Dermatologic History: Reports: None - Infectious Disease History Infectious Disease History: Reports: Chicken Pox, Measles, Novel Coronavirus - Past Surgical History Head Surgeries/Procedures: Reports: None HEENT Surgical History: Reports: None Cardiovascular Surgical History: Reports: None Respiratory Surgical History: Reports: None GI Surgical History: Reports: Cholecystectomy Female Surgical History: Reports: Hysterectomy Endocrine Surgical History: Reports: None Neurological Surgical History: Reports: None Musculoskeletal Surgical History: Reports: None Oncologic Surgical History: Reports: None Dermatological Surgical History: Reports: None Social & Family History - Family History Family Medical History: No Pertinent Family History - Tobacco Use Tobacco Use Status *Q: Never Tobacco User - Caffeine Use Caffeine Use: Reports: None - Recreational Drug Use Recreational Drug Use: No ED ROS GENERAL - Review of Systems Review Of Systems: Comprehensive ROS is negative, except as noted in HPI. ED EXAM, GENERAL - Physical Exam Exam: See Below (see dictation) Course - Vital Signs Last Recorded V/S: Last Vital Signs Temp 98.2 F 09/03/21 12:40 Pulse 70 09/03/21 18:55 Resp 16 09/03/21 14:00 BP 125/66 09/03/21 18:55 Pulse Ox 95 09/03/21 18:55 - Orders/Labs/Meds Orders: Active Orders 24 hr Category Date Time Status BILIRUBIN DIRECT [CHEM] DAILY Lab 09/04/21 18:00 Ordered BILIRUBIN DIRECT [CHEM] DAILY Lab 09/05/21 18:00 Ordered BILIRUBIN DIRECT [CHEM] DAILY Lab 09/06/21 18:00 Ordered BILIRUBIN DIRECT [CHEM] DAILY Lab 09/07/21 18:00 Ordered COMPREHENSIVE METABOLIC PN,CMP [CHEM] DAILY Lab 09/04/21 18:00 Ordered COMPREHENSIVE METABOLIC PN,CMP [CHEM] DAILY Lab 09/05/21 18:00 Ordered COMPREHENSIVE METABOLIC PN,CMP [CHEM] DAILY Lab 09/06/21 18:00 Ordered COMPREHENSIVE METABOLIC PN,CMP [CHEM] DAILY Lab 09/07/21 18:00 Ordered Labs: Laboratory Tests 09/03/21 09/03/21 Range/Units 13:50 13:50 WBC 5.43 (4.0-11.0) K/uL RBC 4.12 L (4.30-5.90) M/uL Hgb 12.8 (12.0-16.0) g/dL Hct 37.3 (36.0-46.0) % MCV 90.5 (80.0-98.0) fL MCH 31.1 (27.0-32.0) pg MCHC 34.3 (31.0-37.0) g/dL RDW Std Deviation 45.1 (28.0-62.0) fl RDW Coeff of Dianelys 14 (11.0-15.0) % Plt Count 128 L (150-400) K/uL MPV 10.10 (7.40-12.00) fL Neut % (Auto) 71.1 (48.0-80.0) % Lymph % (Auto) 22.1 (16.0-40.0) % [place] % (Auto) 6.6 (0.0-15.0) % Eos % (Auto) 0.0 (0.0-7.0) % Baso % (Auto) 0.2 (0.0-1.5) % Neut # (Auto) 3.9 (1.4-5.7) K/uL Lymph # (Auto) 1.2 (0.6-2.4) K/uL [place] # (Auto) 0.4 (0.0-0.8) K/uL Eos # (Auto) 0.0 (0.0-0.7) K/uL Baso # (Auto) 0.0 (0.0-0.1) K/uL Nucleated RBC % 0.0 /100WBC Nucleated RBCs # 0 K/uL Sodium 135 L (136-145) mmol/L Potassium 4.1 (3.5-5.1) mmol/L Chloride 99 (98-107) mmol/L Carbon Dioxide 24.9 (21.0-32.0) mmol/L BUN 21 H (7.0-18.0) mg/dL Creatinine 1.0 (0.6-1.0) mg/dL Est Cr Clr Drug Dosing 44.80 mL/min Estimated GFR (MDRD) 53.9 ml/min Glucose 112 H (74-106) mg/dL Calcium 7.5 L (8.5-10.1) mg/dL Total Bilirubin 0.5 (0.2-1.0) mg/dL AST 37 (15-37) IU/L ALT 34 (14-63) IU/L Alkaline Phosphatase 63 (46-116) U/L Troponin I < 0.050 (0.000-0.056) ng/mL Total Protein 6.3 L (6.4-8.2) g/dL Albumin 3.2 L (3.4-5.0) g/dL Globulin 3.1 (2.6-4.0) g/dL Albumin/Globulin Ratio 1.0 (0.9-1.6) Meds: Medications Discontinued Medications Generic Name Dose Route Start Last Admin Trade Name Freq PRN Reason Stop Dose Admin Acetaminophen 1,000 mg 09/03/21 13:26 09/03/21 13:57 Acetaminophen 500 Mg Tab PO 09/03/21 13:27 1,000 mg ONETIME ONE Administration Calcium Chloride 1 gm 09/03/21 15:17 09/03/21 15:39 Calcium Chloride 10% 1 Gm/10 Ml Syringe IVPUSH 09/03/21 15:18 1 gm ONETIME ONE Administration Dexamethasone 6 mg 09/03/21 17:51 09/03/21 18:07 Dexamethasone 10 Mg/Ml Sdv IVPUSH 09/03/21 17:52 6 mg ONETIME ONE Administration Sodium Chloride 1,000 mls @ 999 mls/hr 09/03/21 13:26 09/03/21 13:56 Normal Saline IV 09/03/21 14:26 999 mls/hr BOLUS ONE Administration Remdesivir 200 mg/ Sodium 250 mls @ 250 mls/hr 09/03/21 17:51 09/03/21 19:06 Chloride IV 09/03/21 17:52 250 mls/hr ONETIME ONE Administration Iopamidol 100 ml 09/03/21 17:20 09/03/21 17:21 Iopamidol 755 Mg/Ml 500 Ml Multipack Bottle IVPUSH 09/03/21 17:21 100 ml ONETIME STA Administration Ketorolac Tromethamine 30 mg 09/03/21 13:26 09/03/21 13:57 Ketorolac 30 Mg/Ml Sdv IVPUSH 09/03/21 13:27 30 mg ONETIME ONE Administration Departure - Departure Time of Disposition: 15: Disposition: Refer to Observation Clinical Impression: COVID-19 virus infection, Hypocalcemia, Hypoxia - Discharge Information Sepsis Event Note (ED) - Evaluation Sepsis Screening Result: No Definite Risk - Focused Exam Vital Signs: Vital Signs Temp Pulse Resp BP Pulse Ox 09/03/21 17:55 74 121/67 90 L 09/03/21 16:43 65 119/63 92 L 09/03/21 16:13 65 113/59 L 92 L 09/03/21 15:43 75 107/60 90 L 09/03/21 14:26 71 101/50 L 92 L 09/03/21 14:00 76 16 104/61 93 L 09/03/21 13:30 90 104/58 L 93 L 09/03/21 12:40 98.2 F 92 20 103/63 96 - My Orders Last 24 Hours: My Active Orders 09/04/21 18:00 BILIRUBIN DIRECT [CHEM] DAILY COMPREHENSIVE METABOLIC PN,CMP [CHEM] DAILY 09/05/21 18:00 BILIRUBIN DIRECT [CHEM] DAILY COMPREHENSIVE METABOLIC PN,CMP [CHEM] DAILY 09/06/21 18:00 BILIRUBIN DIRECT [CHEM] DAILY COMPREHENSIVE METABOLIC PN,CMP [CHEM] DAILY 09/07/21 18:00 BILIRUBIN DIRECT [CHEM] DAILY COMPREHENSIVE METABOLIC PN,CMP [CHEM] DAILY - Assessment/Plan Last 24 Hours: My Active Orders 09/04/21 18:00 BILIRUBIN DIRECT [CHEM] DAILY COMPREHENSIVE METABOLIC PN,CMP [CHEM] DAILY 09/05/21 18:00 BILIRUBIN DIRECT [CHEM] DAILY COMPREHENSIVE METABOLIC PN,CMP [CHEM] DAILY 09/06/21 18:00 BILIRUBIN DIRECT [CHEM] DAILY COMPREHENSIVE METABOLIC PN,CMP [CHEM] DAILY 09/07/21 18:00 BILIRUBIN DIRECT [CHEM] DAILY COMPREHENSIVE METABOLIC PN,CMP [CHEM] DAILY
[2021-09-03] MEDS ORDERED: Iopamidol 755 MG/ML 500 ML Multipack Bottle IVPUSH STA (17:20)
--- NOTE | 2021-09-03 17:42 | CT ---
Indication: Gallardo virus hypoxia Technique: Volumetric multidetector CT images of the chest were obtained after the administration of IV contrast. 100 cc Isovue 370 low osmolar intravenous contrast Comparison: Single view chest September 03, 2021 Findings: The thoracic inlet and thyroid gland are unremarkable. The thoracic aorta demonstrates scattered atherosclerotic calcification. There is no central filling defect to suggest pulmonary embolism. There are reactive mediastinal and hilar lymph nodes. There is mild to moderate central bronchial thickening. There is moderate ground-glass, interstitial and airspace opacities seen throughout the bilateral hemithoraces predominantly within the bilateral lung bases and peripheral upper lobes commensurate with developing gallarod by wrist pneumonia. There is no evidence of pulmonary mass or suspicious pulmonary nodule. The partially visualized upper abdomen is unremarkable with a small hiatal hernia noted. The thoracic vertebral body heights are grossly maintained with minimal endplate Schmorl`s defects and moderate degenerative changes. There is no significant spondylolisthesis or displaced fracture. Impression: Moderate gallardo virus pneumonia and reactive adenopathy without evidence of pulmonary embolus. Please note that all CT scans at this facility use dose modulation, iterative reconstruction, and/or weight-based dosing when appropriate to reduce radiation dose to as low as reasonably achievable. Dictated by Tyson Brumfield MD @ 09/03/2021 5:41:55 PM (Electronically Signed)
[2021-09-03] MEDS ORDERED: REMDESIVIR 200 MG in Sodium Chloride 0.9% 250 ML IV ONE (17:51)
[2021-09-03] MEDS ORDERED: Dexamethasone 10 MG/ML SDV IVPUSH ONE (17:51)
[2021-09-03 18:35] LABS: CARBON DIOXIDE,CO2 22.8 mmol/L (21.0-32.0); POTASSIUM,K 4.1 mmol/L (3.5-5.1)
[2021-09-03] MEDS ORDERED: Benzonatate 100 MG Cap PO PRN (21:04)
[2021-09-03] MEDS ORDERED: Acetaminophen 325 MG Tab PO PRN (21:05)
[2021-09-03] MEDS ORDERED: Ibuprofen 200 MG Tab PO PRN (21:07)
[2021-09-03] MEDS ORDERED: Albuterol/Ipratropium 4 GM Inhalation Spray INH PRN (21:08)
[2021-09-03] MEDS ORDERED: Ondansetron 4 MG/2 ML SDV IVPUSH PRN (21:10)
[2021-09-03] MEDS ORDERED: Enoxaparin 40 MG/0.4 ML Syringe SUBCUT SCH (23:45)
--- NOTE | 2021-09-03 23:48 | PCM.HP.2 ---
H&P History of Present Illness - General Date of Service: 09/03/21 Admit Problem/Dx: Admission Diagnosis/Problem Admission Diagnosis/Problem Hypoxia - History of Present Illness Initial Comments - Free Text/Narative: 76 yo female who was diagnosed with COVID 4 days ago. She reports a history of head cold, myalgias, cough, and shortness of breath. PAtient did recieve monoclonal antibodies yesterday. Patient was noted to be satting 88% on RA in the ED. CT scan of chest reported bilateral infiltrates, negative for PE. - Related Data Allergies/Adverse Reactions: Allergies Allergy/AdvReac Type Severity Reaction Status Date / Time No Known Allergies Allergy Verified 09/03/21 21:27 Home Medications: Home Meds Celecoxib 200 mg PO BID 09/01/21 [History] Rosuvastatin [Crestor] 5 mg PO BEDTIME 09/01/21 [History] Telmisartan 40 mg PO DAILY 09/03/21 [History] Past Medical History HEENT History: Reports: Hard of Hearing, Impaired Vision Cardiovascular History: Reports: High Cholesterol, Hypertension, Syncope, Other (See Below) Other Cardiovascular History: Hx of "Fainitng Spells" Respiratory History: Reports: None Gastrointestinal History: Reports: None Genitourinary History: Reports: None 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: Musculoskeletal History: Reports: Other (See Below) Neurological History: Reports: None Psychiatric History: Reports: None Endocrine/Metabolic History: Reports: None Hematologic History: Reports: None Immunologic History: Reports: None Oncologic (Cancer) History: Reports: None Dermatologic History: Reports: None - Infectious Disease History Infectious Disease History: Reports: Chicken Pox, Measles, Novel Coronavirus - Past Surgical History Head Surgeries/Procedures: Reports: None HEENT Surgical History: Reports: None Cardiovascular Surgical History: Reports: None Respiratory Surgical History: Reports: None GI Surgical History: Reports: Cholecystectomy Female Surgical History: Reports: Hysterectomy Endocrine Surgical History: Reports: None Neurological Surgical History: Reports: None Musculoskeletal Surgical History: Reports: None Oncologic Surgical History: Reports: None Dermatological Surgical History: Reports: None Social & Family History - Family History Family Medical History: No Pertinent Family History - Tobacco Use Tobacco Use Status *Q: Former Tobacco User Used Tobacco, but Quit: Yes Month/Year Tobacco Last Used: 1963 Second Hand Smoke Exposure: Yes - Caffeine Use Caffeine Use: Reports: Coffee - Recreational Drug Use Recreational Drug Use: No H&P Review of Systems - Review of Systems: Review Of Systems: Comprehensive ROS is negative, except as noted in HPI. Exam - Exam Exam: See Below - Vital Signs Vital Signs: Last Vital Signs Temp 36.8 C 09/03/21 12:40 Pulse 70 09/03/21 18:55 Resp 16 09/03/21 14:00 BP 125/66 09/03/21 18:55 Pulse Ox 95 09/03/21 18:55 Weight: 69.173 kg - Exam General: Alert, Oriented HEENT: Mucosa Moist & [place] Lungs: Clear to Auscultation, Normal Respiratory Effort Cardiovascular: Regular Rate, Regular Rhythm GI/Abdominal Exam: Soft, Non-Tender, No Distention Extremities: Non-Tender, No Pedal Edema Skin: Warm, Dry, Intact Neurological: Cranial Nerves Intact. No: Focal Deficit - Patient Data Lab Results Last 24 hrs: Laboratory Results - last 24 hr 09/03/21 09/03/21 09/03/21 Range/Units 13:50 13:50 18:06 WBC 5.43 (4.0-11.0) K/uL RBC 4.12 L (4.30-5.90) M/uL Hgb 12.8 (12.0-16.0) g/dL Hct 37.3 (36.0-46.0) % MCV 90.5 (80.0-98.0) fL MCH 31.1 (27.0-32.0) pg MCHC 34.3 (31.0-37.0) g/dL RDW Std Deviation 45.1 (28.0-62.0) fl RDW Coeff of Dianelys 14 (11.0-15.0) % Plt Count 128 L (150-400) K/uL MPV 10.10 (7.40-12.00) fL Neut % (Auto) 71.1 (48.0-80.0) % Lymph % (Auto) 22.1 (16.0-40.0) % [place] % (Auto) 6.6 (0.0-15.0) % Eos % (Auto) 0.0 (0.0-7.0) % Baso % (Auto) 0.2 (0.0-1.5) % Neut # (Auto) 3.9 (1.4-5.7) K/uL Lymph # (Auto) 1.2 (0.6-2.4) K/uL [place] # (Auto) 0.4 (0.0-0.8) K/uL Eos # (Auto) 0.0 (0.0-0.7) K/uL Baso # (Auto) 0.0 (0.0-0.1) K/uL Nucleated RBC % 0.0 /100WBC Nucleated RBCs # 0 K/uL Sodium 135 L 135 L (136-145) mmol/L Potassium 4.1 4.1 (3.5-5.1) mmol/L Chloride 99 101 (98-107) mmol/L Carbon Dioxide 24.9 22.8 (21.0-32.0) mmol/L BUN 21 H 21 H (7.0-18.0) mg/dL Creatinine 1.0 1.1 H (0.6-1.0) mg/dL Est Cr Clr Drug Dosing 44.80 40.73 mL/min Estimated GFR (MDRD) 53.9 48.3 ml/min Glucose 112 H 104 (74-106) mg/dL Calcium 7.5 L 8.2 L (8.5-10.1) mg/dL Total Bilirubin 0.5 0.8 (0.2-1.0) mg/dL Direct Bilirubin 0.20 (0.0-0.5) mg/dL AST 37 40 H (15-37) IU/L ALT 34 34 (14-63) IU/L Alkaline Phosphatase 63 56 (46-116) U/L Troponin I < 0.050 (0.000-0.056) ng/mL Total Protein 6.3 L 5.6 L (6.4-8.2) g/dL Albumin 3.2 L 2.8 L (3.4-5.0) g/dL Globulin 3.1 2.8 (2.6-4.0) g/dL Albumin/Globulin Ratio 1.0 1.0 (0.9-1.6) Result Diagrams: 09/04/21 05:50 09/04/21 05:50 Sepsis Event Note - Evaluation Sepsis Screening Result: No Definite Risk - Focused Exam Vital Signs: Vital Signs Temp Pulse Resp BP Pulse Ox 09/03/21 18:55 70 125/66 95 09/03/21 18:12 71 121/67 91 L 09/03/21 17:55 74 121/67 90 L 09/03/21 16:43 65 119/63 92 L 09/03/21 16:13 65 113/59 L 92 L 09/03/21 15:43 75 107/60 90 L 09/03/21 14:26 71 101/50 L 92 L 09/03/21 14:00 76 16 104/61 93 L 09/03/21 13:30 90 104/58 L 93 L 09/03/21 12:40 36.8 C 92 20 103/63 96 - Problem List (1) COVID-19 virus infection SNOMED Code(s): 259551515 ICD Code: U07.1 - COVID-19 Status: Acute Current Visit: Yes (2) Hypoxia SNOMED Code(s): 737911670 ICD Code: R09.02 - HYPOXEMIA Status: Acute Current Visit: Yes Problem List Initiated/Reviewed/Updated: Yes Orders Last 24hrs: Active Orders 24 hr Category Date Time Status Admission Status [Patient Status] [ADT] Stat ADT 09/03/21 18:01 Active Antiembolic Devices [RC] PER UNIT ROUTINE Care 09/03/21 23:44 Ordered Oxygen Therapy [RC] PRN Care 09/03/21 23:43 Ordered RT Post Treatment Assessment [RC] Click to Edit Care 09/03/21 21:09 Active RT Pre-Treatment Assessment [RC] Click to Edit Care 09/03/21 21:09 Active Up ad Nuris [RC] ASDIRECTED Care 09/03/21 23:43 Ordered VTE/DVT Education [RC] PER UNIT ROUTINE Care 09/03/21 23:43 Ordered Vital Signs [RC] Q4H Care 09/03/21 23:43 Ordered Regular Diet [DIET] Diet 09/04/21 Breakfast Active CBC W/O DIFF,HEMOGRAM [HEME] AM Lab 09/04/21 05:11 Ordered CBC W/O DIFF,HEMOGRAM [HEME] AM Lab 09/05/21 05:11 Ordered CBC W/O DIFF,HEMOGRAM [HEME] AM Lab 09/06/21 05:11 Ordered CBC W/O DIFF,HEMOGRAM [HEME] AM Lab 09/07/21 05:11 Ordered COMPREHENSIVE METABOLIC PN,CMP [CHEM] AM Lab 09/04/21 05:11 Ordered COMPREHENSIVE METABOLIC PN,CMP [CHEM] AM Lab 09/05/21 05:11 Ordered COMPREHENSIVE METABOLIC PN,CMP [CHEM] AM Lab 09/06/21 05:11 Ordered COMPREHENSIVE METABOLIC PN,CMP [CHEM] AM Lab 09/07/21 05:11 Ordered Acetaminophen [TylenoL] Med 09/03/21 21:05 Active 650 mg PO Q6H PRN Albuterol/Ipratropium [Combivent Respimat] Med 09/03/21 21:08 Active See Dose Instructions INH Q6H PRN Benzonatate [Tessalon Perles] Med 09/03/21 21:04 Active 100 mg PO Q6H PRN Enoxaparin [Lovenox] Med 09/03/21 23:45 Ordered 40 mg SUBCUT Q24H Ibuprofen [Motrin] Med 09/03/21 21:07 Active 200 mg PO Q6H PRN Ondansetron [Zofran] Med 09/03/21 21:10 Active 4 mg IVPUSH Q4H PRN Remdesivir 100 mg Med 09/04/21 18:00 Ordered Sodium Chloride 0.9% [Normal Saline] 100 ml IV Q24H dexAMETHasone Med 09/04/21 18:00 Ordered 6 mg PO Q24H Sequential Compression Device [OM.PC] Per Unit Routine Oth 09/03/21 23:43 Ordered Resuscitation Status Routine Resus Stat 09/03/21 23:43 Ordered Medication Orders Acetaminophen (Acetaminophen 325 Mg Tab) 650 mg PO Q6H PRN PRN Reason: Pain/Fever Albuterol/Ipratropium (Albuterol/Ipratropium 4 Gm Inhalation [place]) 0 gm INH Q6H PRN PRN Reason: Shortness of Breath Benzonatate (Benzonatate 100 Mg Cap) 100 mg PO Q6H PRN PRN Reason: Cough Dexamethasone (Dexamethasone 4 Mg Tab) 6 mg PO Q24H BILLY Remdesivir 100 mg/ Sodium (Chloride) 100 mls @ 100 mls/hr IV Q24H BILLY Stop: 09/07/21 18:59 Ibuprofen (Ibuprofen 200 Mg Tab) 200 mg PO Q6H PRN PRN Reason: Pain Ondansetron HCl (Ondansetron 4 Mg/2 Ml Sdv) 4 mg IVPUSH Q4H PRN PRN Reason: Nausea/Vomiting Assessment/Plan Comment:: 76 yo female admitted for COVID pneumonia with hypoxia Hypoxia: on 2 L NC COVID: treating with remdesivir, and dexamethasone lovenox for DVT prophylaxis
[2021-09-04 06:51] LABS: BLOOD UREA NITROGEN,BUN 22 mg/dL (7.0-18.0); CARBON DIOXIDE,CO2 22.4 mmol/L (21.0-32.0); CHLORIDE,CL 104 mmol/L (98-107); GLUCOSE RANDOM 139 mg/dL (74-106); POTASSIUM,K 4.5 mmol/L (3.5-5.1); SODIUM,NA 140 mmol/L (136-145)
[2021-09-04 12:32] VITALS: BP 119/62; PULSE 72
--- NOTE | 2021-09-04 12:51 | PCM.DCSUM1 ---
Discharge Summary - Discharge Data Discharge Date: 09/04/21 Discharge Disposition: Home, Self-Care 01 Condition: Stable - Referral to Home Health Primary Care Physician: PCP None - Discharge Diagnosis/Problem(s) (1) COVID-19 virus infection SNOMED Code(s): 311494545 ICD Code: U07.1 - COVID-19 Status: Acute Current Visit: Yes (2) Hypoxia SNOMED Code(s): 926808334 ICD Code: R09.02 - HYPOXEMIA Status: Acute Current Visit: Yes - Patient Summary/Data Hospital Course: 76 yo female who was diagnosed with COVID 4 days ago. She reports a history of head cold, myalgias, cough, and shortness of breath. Patient did receive monoclonal antibodies yesterday. Patient was noted to be satting 88% on RA in the ED. CT scan of chest reported bilateral infiltrates, negative for PE. Patient was given dexamethasone and Remdesivir and observed overnight. Patient is now satting 94% on room air and is feeling much better. She is requesting discharge. Patient is to be discharged home to have follow up with Dr. Pop. - Patient Instructions Diet: Regular Diet as Tolerated - Discharge Plan Home Medications: Home Meds Celecoxib 200 mg PO BID 09/01/21 [History] Rosuvastatin [Crestor] 5 mg PO BEDTIME 09/01/21 [History] Telmisartan 40 mg PO DAILY 09/03/21 [History] Patient Handouts: Hypoxia, COVID-19, COVID-19 Vaccine Information, Hypocalcemia, Adult Referrals: PCP,Unknown [Ordering Only Provider] - - Discharge Summary/Plan Comment DC Time >30 min.: No Total # of Minutes for Discharge Time: 15 - Patient Data Vitals - Most Recent: Last Vital Signs Temp 36.3 C 09/04/21 12:30 Pulse 72 09/04/21 12:30 Resp 18 09/04/21 12:30 BP 119/62 09/04/21 12:30 Pulse Ox 94 L 09/04/21 12:30 Weight - Most Recent: 69.173 kg I&O - Last 24 hours: Intake & Output 09/03/21 09/04/21 09/04/21 22:59 06:59 14:59 Intake Total 300 Balance 300 Lab Results - Last 24 hrs: Laboratory Results - last 24 hr 1009/03/21 09/03/21 Range/Units 13:50 13:50 18:06 WBC 5.43 (4.0-11.0) K/uL RBC 4.12 L (4.30-5.90) M/uL Hgb 12.8 (12.0-16.0) g/dL Hct 37.3 (36.0-46.0) % MCV 90.5 (80.0-98.0) fL MCH 31.1 (27.0-32.0) pg MCHC 34.3 (31.0-37.0) g/dL RDW Std Deviation 45.1 (28.0-62.0) fl RDW Coeff of Dianelys 14 (11.0-15.0) % Plt Count 128 L (150-400) K/uL MPV 10.10 (7.40-12.00) fL Neut % (Auto) 71.1 (48.0-80.0) % Lymph % (Auto) 22.1 (16.0-40.0) % Randolph % (Auto) 6.6 (0.0-15.0) % Eos % (Auto) 0.0 (0.0-7.0) % Baso % (Auto) 0.2 (0.0-1.5) % Neut # (Auto) 3.9 (1.4-5.7) K/uL Lymph # (Auto) 1.2 (0.6-2.4) K/uL Randolph # (Auto) 0.4 (0.0-0.8) K/uL Eos # (Auto) 0.0 (0.0-0.7) K/uL Baso # (Auto) 0.0 (0.0-0.1) K/uL Nucleated RBC % 0.0 /100WBC Nucleated RBCs # 0 K/uL Sodium 135 L 135 L (136-145) mmol/L Potassium 4.1 4.1 (3.5-5.1) mmol/L Chloride 99 101 (98-107) mmol/L Carbon Dioxide 24.9 22.8 (21.0-32.0) mmol/L BUN 21 H 21 H (7.0-18.0) mg/dL Creatinine 1.0 1.1 H (0.6-1.0) mg/dL Est Cr Clr Drug Dosing 44.80 40.73 mL/min Estimated GFR (MDRD) 53.9 48.3 ml/min Glucose 112 H 104 (74-106) mg/dL Calcium 7.5 L 8.2 L (8.5-10.1) mg/dL Total Bilirubin 0.5 0.8 (0.2-1.0) mg/dL Direct Bilirubin 0.20 (0.0-0.5) mg/dL AST 37 40 H (15-37) IU/L ALT 34 34 (14-63) IU/L Alkaline Phosphatase 63 56 (46-116) U/L Troponin I < 0.050 (0.000-0.056) ng/mL Total Protein 6.3 L 5.6 L (6.4-8.2) g/dL Albumin 3.2 L 2.8 L (3.4-5.0) g/dL Globulin 3.1 2.8 (2.6-4.0) g/dL Albumin/Globulin Ratio 1.0 1.0 (0.9-1.6) 09/04/21 09/04/21 Range/Units 05:50 05:50 WBC 3.13 L (4.0-11.0) K/uL RBC 4.46 (4.30-5.90) M/uL Hgb 13.6 (12.0-16.0) g/dL Hct 40.8 (36.0-46.0) % MCV 91.5 (80.0-98.0) fL MCH 30.5 (27.0-32.0) pg MCHC 33.3 (31.0-37.0) g/dL RDW Std Deviation 45.4 (28.0-62.0) fl RDW Coeff of Dianelys 14 (11.0-15.0) % Plt Count 141 L (150-400) K/uL MPV 10.40 (7.40-12.00) fL Neut % (Auto) (48.0-80.0) % Lymph % (Auto) (16.0-40.0) % Randolph % (Auto) (0.0-15.0) % Eos % (Auto) (0.0-7.0) % Baso % (Auto) (0.0-1.5) % Neut # (Auto) (1.4-5.7) K/uL Lymph # (Auto) (0.6-2.4) K/uL Randolph # (Auto) (0.0-0.8) K/uL Eos # (Auto) (0.0-0.7) K/uL Baso # (Auto) (0.0-0.1) K/uL Nucleated RBC % 0.0 /100WBC Nucleated RBCs # 0 K/uL Sodium 140 (136-145) mmol/L Potassium 4.5 (3.5-5.1) mmol/L Chloride 104 (98-107) mmol/L Carbon Dioxide 22.4 (21.0-32.0) mmol/L BUN 22 H (7.0-18.0) mg/dL Creatinine 0.7 (0.6-1.0) mg/dL Est Cr Clr Drug Dosing 64.01 mL/min Estimated GFR (MDRD) > 60.0 ml/min Glucose 139 H (74-106) mg/dL Calcium 8.1 L (8.5-10.1) mg/dL Total Bilirubin 0.4 (0.2-1.0) mg/dL Direct Bilirubin (0.0-0.5) mg/dL AST 39 H (15-37) IU/L ALT 33 (14-63) IU/L Alkaline Phosphatase 66 (46-116) U/L Troponin I (0.000-0.056) ng/mL Total Protein 5.9 L (6.4-8.2) g/dL Albumin 2.7 L (3.4-5.0) g/dL Globulin 3.2 (2.6-4.0) g/dL Albumin/Globulin Ratio 0.8 L (0.9-1.6) Med Orders - Current: Current Medications Acetaminophen (Acetaminophen 325 Mg Tab) 650 mg PO Q6H PRN PRN Reason: Pain/Fever Albuterol/Ipratropium (Albuterol/Ipratropium 4 Gm Inhalation [place]) 0 gm INH Q6H PRN PRN Reason: Shortness of Breath Benzonatate (Benzonatate 100 Mg Cap) 100 mg PO Q6H PRN PRN Reason: Cough Dexamethasone (Dexamethasone 4 Mg Tab) 6 mg PO Q24H [facility]ILLY Enoxaparin Sodium (Enoxaparin 40 Mg/0.4 Ml Syringe) 40 mg SUBCUT Q24H [facility] Last Admin: 09/04/21 00:24 Dose: 40 mg Documented by: Remdesivir 100 mg/ Sodium (Chloride) 100 mls @ 100 mls/hr IV Q24H BILLY Stop: 09/07/21 18:59 Ibuprofen (Ibuprofen 200 Mg Tab) 200 mg PO Q6H PRN PRN Reason: Pain Ondansetron HCl (Ondansetron 4 Mg/2 Ml Sdv) 4 mg IVPUSH Q4H PRN PRN Reason: Nausea/Vomiting Discontinued Medications Acetaminophen (Acetaminophen 500 Mg Tab) 1,000 mg PO ONETIME ONE Stop: 09/03/21 13:27 Last Admin: 09/03/21 13:57 Dose: 1,000 mg Documented by: Calcium Chloride (Calcium Chloride 10% 1 Gm/10 Ml Syringe) 1 gm IVPUSH ONETIME ONE Stop: 09/03/21 15:18 Last Admin: 09/03/21 15:39 Dose: 1 gm Documented by: Dexamethasone (Dexamethasone 10 Mg/Ml Sdv) 6 mg IVPUSH ONETIME ONE Stop: 09/03/21 17:52 Last Admin: 09/03/21 18:07 Dose: 6 mg Documented by: Sodium Chloride (Normal Saline) 1,000 mls @ 999 mls/hr IV BOLUS ONE Stop: 09/03/21 14:26 Last Admin: 09/03/21 13:56 Dose: 999 mls/hr Documented by: Remdesivir 200 mg/ Sodium (Chloride) 250 mls @ 250 mls/hr IV ONETIME ONE Stop: 09/03/21 17:52 Last Admin: 09/03/21 19:06 Dose: 250 mls/hr Documented by: Iopamidol (Iopamidol 755 Mg/Ml 500 Ml Multipack Bottle) 100 ml IVPUSH ONETIME STA Stop: 09/03/21 17:21 Last Admin: 09/03/21 17:21 Dose: 100 ml Documented by: Ketorolac Tromethamine (Ketorolac 30 Mg/Ml Sdv) 30 mg IVPUSH ONETIME ONE Stop: 09/03/21 13:27 Last Admin: 09/03/21 13:57 Dose: 30 mg Documented by:
[2021-09-04] MEDS ORDERED: REMDESIVIR 100 MG in Sodium Chloride 0.9% 100 ML IV SCH (18:00)
[2021-09-04] MEDS ORDERED: Dexamethasone 4 MG Tab PO SCH (18:00)
== END 2021-09-04 15:56 | disposition home or self-care (01) ==
LOC: MW.ED 12:38 → MW.MS 18:01
PROVIDERS: ADMIT Internal Medicine; ATTEND Internal Medicine
DX: U07.1 COVID-19 (principal); J12.82 Pneumonia due to coronavirus disease 2019; R09.02 Hypoxemia; E78.00 Pure hypercholesterolemia, unspecified; I10 Essential (primary) hypertension; Z98.890 Other specified postprocedural states; Z23 Encounter for immunization; Z79.899 Other long term (current) drug therapy
CPT/HCPCS: 36415; 71045; 71275; 80053; 82248; 84484; 85025; 85027; 93005; 96374; 96375; 99285; A9270; J1100; J1650; J1885; J7030; J7050; Q9967